=== PATIENT | male | born 1945 | race Caucasian/White ===

== ENCOUNTER → 2018-03-25 11:48 | Outpatient (CLI) | payer MEDICARE, SELFPAY ==
[2018-03-25 14:35] LABS: Alanine Aminotransferase 26 IU/L (21-72); Albumin 4.3 g/dL (3.5-5.0); Albumin Globulin Ratio 1.9 (1.0-2.8); Alkaline Phosphatase 74 U/L (38-126); Aspartate Aminotransferase 28 IU/L (17-59); BUN Creatinine Ratio 15.8 (6-22); Bilirubin Total 1.4 mg/dL (0.2-1.3); Blood Urea Nitrogen 19 mg/dL (9-20); Calcium 9.1 mg/dL (8.4-10.2); Carbon Dioxide 26 mmol/L (22-32); Chloride 89 mmol/L (98-107); Cholesterol 144 mg/dL (140-199); Estimated Glomerular Filt Rate 59.7 mL/min (>60); Globulin 2.3 g/dL (1.7-4.1); Glucose 86 mg/dL (80-110); HDL Cholesterol 87 mg/dL (40-60); HEMOLYSIS < 15 (0-50); LDL Cholesterol Calculated 49 mg/dL (<100); Potassium 4.7 mmol/L (3.4-5.1); Sodium 127 mmol/L (137-145); Total Protein 6.6 g/dL (6.3-8.2); Triglycerides 42 mg/dL (35-150)
[2018-03-25 15:05] LABS: Prostate Specific Antigen Scrn 3.64 ng/mL (0.1-4.0)
== END ==
PROVIDERS: PCP Internal Medicine; Visit Provider Internal Medicine
DX: D64.9 Anemia, unspecified (principal); I10 Essential (primary) hypertension; Z00.01 Encounter for general adult medical examination with abnormal findings
CPT/HCPCS: 36415; 80053; 80061; G0103

== ENCOUNTER → 2018-12-23 07:48 | Outpatient (CLI) | payer MEDICARE, SELFPAY ==
--- NOTE | 2018-12-23 | DI.ECHO.S_ITS ---
[facility] +---------+ : : [address] : [address] : : : : [id number] : : : : Phone: [phone]+ Echocardiogram Report + + :Name: JEFF GIL Study Date: 12/23/2018 Height: 72 in : :[facility] Exam Location: [facility] Weight: 208 lb : : Gender: Male BSA: 2.2 m2 : :: 1945 Age: 73 yrs BP: 104/60 mmHg: :Reason For Study: AFIB : : Performed By: Hank Garcia : :Referring: JAGDISH AVILA : + + Interpretation Summary The patient was in atrial fibrillation with rapid ventricular response during the exam with a heart rate exceeding 100 bpm. Normal left ventricle size with ejection fraction 50-55%. Moderately dilated left atrium. Severely dilated right atrium. Mild aortic valve sclerosis. Mild mitral regurgitation. Moderate tricuspid regurgitation. The right ventricular systolic pressure is estimated to be at least 28 mmHg based on an estimated right atrial pressure of 8 mm Hg. Mildly enlarged ascending aorta. Procedure: A two-dimensional transthoracic echocardiogram with color flow and Doppler was performed. The study quality was technically adequate. There is no prior echocardiogram noted for this patient. The patient was in atrial fibrillation with rapid ventricular response during the exam with a heart rate exceeding 100 bpm. The patient had a heart rate of 91-125 beats per minute. Left Ventricle: The left ventricle is normal in size. There is normal left ventricular wall thickness. The ejection fraction is estimated to be 50-55%. There are no focal wall motion abnormalities. Diastolic function could not be accurately assessed due to atrial fibrillation. Right Ventricle: The right ventricle is at the upper limits of normal in size. The right ventricular systolic function is normal. Atria: The left atrium is moderately dilated. The right atrium is severely dilated. The interatrial septum is intact with no evidence for an atrial septal defect. Mitral Valve: The mitral valve is normal in structure and function. There is mild mitral regurgitation. Aortic Valve: There is mild aortic valve sclerosis. The aortic valve opens well. No aortic regurgitation is present. Tricuspid Valve: The tricuspid valve is normal in structure and function. There is moderate tricuspid regurgitation. The right ventricular systolic pressure is estimated to be at least 28 mmHg based on an estimated right atrial pressure of 8 mm Hg. Pulmonic Valve: The pulmonic valve is normal in structure and function. There is trace pulmonic regurgitation. Great Vessels: The aortic root is normal size. The ascending aorta is mildly enlarged. The pulmonary artery is normal size. The IVC is dilated (diameter is greater than 2.1 cm) yet it collapses greater than 50% with a sniff. This suggests a right atrial pressure of 8 mm Hg. Pericardium/ Pleura There is no pericardial effusion. There is no pleural effusion. MMode/2D Measurements & Calculations LVIDd: 4.8 cm LVOT diam: 2.2 cm LVIDs: 3.6 cm Ao root diam: 3.7 cm FS: 25.0 % Aortic Jxn: 2.9 cm EPSS: 0.82 cm asc Aorta Diam: 3.8 cm IVSd: 1.2 cm Ao Arch Diam (Prox Trans): 2.9 cm LVPWd: 0.92 cm LV brown. diameter/BSA (cm/m^2): 2.2 LV sys. diameter/BSA (cm/m^2): 1.7 LA dimension: 5.1 cm RA long axis: 5.9 cm LA A2 area: 27.1 cm2 RA area: 28.1 cm2 LA A4 area: 27.9 cm2 RA vol: 113.6 ml LA length (vol): 6.6 cm RA : 52.4 ml/m2 LA vol: 97.4 ml IVC diam: 2.6 cm LA vol index: 45.0 ml/m2 RVD1 (basal): 4.4 cm RVD2 (mid): 3.1 cm Doppler Measurements & Calculations Ao V2 max: 92.9 cm/sec LVOT Max Leonidas: 83.2 cm/sec Ao V2 mean: 75.7 cm/sec LV V1 max P.8 mmHg Ao max P.5 mmHg LV V1 VTI: 16.1 cm Ao mean P.4 mmHg DIEGO(I,D): 4.0 cm2 Ao V2 VTI: 15.8 cm DIEGO(V,D): 3.5 cm2 sev ratio: 1.0 DIEGO indexed to BSA (cm^2/m^2): 1.8 MV E max leonidas: 94.2 cm/sec TR max leonidas: 224.1 cm/sec MV A max leonidas: 1.3 cm/sec TR max P.1 mmHg MV E/A: 72.6 PA V2 max: 66.8 cm/sec Med Peak E' Leonidas: 7.2 cm/sec PA V2 mean: 53.9 cm/sec E/E' med: 13.2 PA mean P.2 mmHg Lat Peak E' Leonidas: 11.5 cm/sec PA pr(Accel): 46.6 mmHg E/E' lat: 8.2 PA Accel Time: 0.07 sec E/e' average: 10.7 MV dec time: 0.12 sec SV(OT): 62.5 ml Electronically signed by: Arun Mohr on Reading Physician:12/23/2018 02:29 PM
== END ==
PROVIDERS: PCP Internal Medicine; Visit Provider Internal Medicine
DX: I48.91 Unspecified atrial fibrillation (principal); I35.8 Other nonrheumatic aortic valve disorders; I34.0 Nonrheumatic mitral (valve) insufficiency; I51.7 Cardiomegaly; Q25.40 Congenital malformation of aorta unspecified
CPT/HCPCS: 93306

== ENCOUNTER → 2019-01-10 07:42 | Outpatient (CLI) | payer MEDICARE, SELFPAY ==
--- NOTE | 2019-01-10 08:50 | PM.TREADMILL ---
Cardiac Stress Test Report Referral & Results Date Patient Seen: 01/10/19 Time Patient Seen: 08:30 Requesting provider: Dany Duran Indication: Atrial Fibrillation Rest ECG: A-fib Procedure Note: Today following both written and verbal informed consent the patient was exercised according to a standard Scar protocol patient went for a total of 5 minutes 52 seconds achieving a maximum heart rate of 188 maximum systolic blood pressure of 160. This is approximately 7 METS. Exercise was terminated at this point because of fatigue. Patient was also given Cardiolite through a previously started Hep-Lock IV by the nuclear process engineer approximately 1 minute prior to the cessation of exercise. No signs or symptoms of angina. Atrial fibrillation throughout the test. Diffuse [address] elevations, which resolved rapidly with rest. Occasional PVCs. PHYLICIA +10% on sedentary scale. Impression: Intermediate probability for ischemia. Parker treadmill score of -4. Will await perfusion imaging. Please note: Actual ECG tracings can be found in the PACS system.
--- NOTE | 2019-01-10 08:53 | P.PCN_ITS ---
Cardiac Stress Test Report Referral & Results Date Patient Seen: 01/10/19 Time Patient Seen: 08:30 Requesting provider: Dany Duran Indication: Atrial Fibrillation Rest ECG: A-fib Procedure Note: Today following both written and verbal informed consent the patient was exercised according to a standard Scar protocol patient went for a total of 5 minutes 52 seconds achieving a maximum heart rate of 188 maximum systolic blood pressure of 160. This is approximately 7 METS. Exercise was terminated at this point because of fatigue. Patient was also given Cardiolite through a previously started Hep-Lock IV by the medical doctor nuclear medicine approximately 1 minute prior to the cessation of exercise. No signs or symptoms of angina. Atrial fibrillation throughout the test. Diffuse [address] elevations, which resolved rapidly with rest. Occasional PVCs. PHYLICIA +10% on sedentary scale. Impression: Intermediate probability for ischemia. Parker treadmill score of -4. Will await perfusion imaging. Please note: Actual ECG tracings can be found in the PACS system.
--- NOTE | 2019-01-13 17:13 | DI.NM.S_ITS ---
DATE OF SERVICE: 01/10/2019 PROCEDURE: Exercise perfusion study. INDICATIONS: Atrial fibrillation. RADIOPHARMACEUTICAL: 25.3 mCi technetium-99m Myoview IV was injected at stress and 25.9 mCi technetium-99m Myoview IV was injected at rest. CARDIAC STRESS: Patient underwent exercise perfusion study under the supervision of an attending staff. He walked on Scar protocol for 5 minutes 52 seconds, achieved 7 METs of workload and functional aerobic impairment of 10%. Patient achieved 127% of target heart rate. Baseline blood pressure 124/82. Peak blood pressure 160/90. Baseline rhythm was sinus with a fib with up to 0.[address] depression in inferolateral leads. During stress, there was more pronounced ST depression in inferolateral leads as well as right bundle-branch block pattern. ST segment settle down to the baseline in 1 minute of the recovery. Patient felt fatigue. There was occasional PVCs. RAW DATA: There was increased of diaphragmatic activity. Patient's weight is 208 pounds. GATED STUDY: Stress LV ejection fraction 53%. No transient ischemic dilatation. Resting end-diastolic volume is 87 mL. TID ratio is 0.89, which is within normal limits. No regional wall motion abnormalities. Lung/heart ratio is 0.38, which is within normal limits. MYOCARDIAL PERFUSION SCAN: Stress supine and resting supine and stress prone images were compared to each other. Resting supine images revealed small-sized mildly decreased perfusion of inferolateral wall. Stress supine images revealed mildly decreased perfusion of distal anterior septum. During stress prone images, all those defects were normalized. There was no obvious ischemia infarction pattern. CONCLUSION: I will call this study a normal myocardial perfusion study with evidence of tissue attenuation artifact as stated above which got improved and resolved during prone images. The patient has baseline atrial fibrillation. There was enhanced chronotropic response with exercise. Rate-related right bundle-branch block seen as well. Stress left ventricular (LV) ejection fraction 53% and resting LV ejection fraction 60%. As far as perfusion scan is concerned, this is a low-risk myocardial perfusion scan. Homar Vargas - ANIMAL STUNNER/lisa/ab doc#: [id number]/job#: [id number] dd: 01/13/2019 16:40:00 dt: 01/13/2019 17:02:00 DICTATING MD/COPIES TO: Praveen Amaya MD COPIES MNE: TED
== END ==
PROVIDERS: PCP Internal Medicine; Referring Provider Student in an Organized Health Care Education/Training Program; Visit Provider Internal Medicine
DX: I48.91 Unspecified atrial fibrillation (principal)
CPT/HCPCS: 78452; 93016; 93017; 93018; A9502

== ENCOUNTER → 2019-01-31 15:13 | Outpatient (CLI) | payer MEDICARE, SELFPAY ==
[2019-01-31 15:41] LABS: Add Manual Diff / Slide Review NO; Basophils Absolute Auto 0 /uL (0-100); Basophils Percent Auto 0.6 % (0-2); Eosinophils Absolute Auto 200 /uL (0-450); Hematocrit 42.3 % (41-53); Hemoglobin 14.4 g/dL (13.5-17.5); Lymphocytes Absolute Auto 1200 /uL (1100-4500); Lymphocytes Percent Auto 21.8 % (25-40); Mean Corpuscular HGB Conc 34.1 % (30-36); Mean Corpuscular Hemoglobin 34.5 PG (26-34); Monocytes Absolute Auto 700 /uL (0-900); Monocytes Percent Auto 12.6 % (3-14); Neutrophils Absolute Auto 3500 /uL (1500-7000); Platelet Count 158 X10^3/uL (150-400); Red Blood Cell Count 4.19 X10^6/uL (4.5-5.9); Red Cell Distribution Width 14.6 % (11.6-14.8); White Blood Cell Count 5.7 X10^3/uL (4.5-11.0)
[2019-01-31 16:10] LABS: BUN Creatinine Ratio 24.6 (6-22); Blood Urea Nitrogen 32 mg/dL (9-20); Calcium 8.9 mg/dL (8.4-10.2); Carbon Dioxide 24 mmol/L (22-32); Chloride 98 mmol/L (98-107); Estimated Glomerular Filt Rate 54.3 mL/min (>60); Glucose 108 mg/dL (80-110); HEMOLYSIS 16 (0-50); Potassium 4.4 mmol/L (3.4-5.1); Sodium 131 mmol/L (137-145)
== END ==
PROVIDERS: PCP Internal Medicine; Visit Provider Internal Medicine Cardiovascular Disease
DX: I48.1 Persistent atrial fibrillation (principal)
CPT/HCPCS: 36415; 80048; 85025

== ENCOUNTER → 2019-04-21 14:37 | Outpatient (CLI) | payer MEDICARE, SELFPAY ==
--- NOTE | 2019-04-21 14:40 | DI.RAD.S_ITS ---
PROCEDURE: XR ANKLE RT MIN 3V INDICATIONS: Trauma, swelling, pain, ecchymosis lateral malleoli. R/o fx TECHNIQUE: 3 views of the ankle were acquired. COMPARISON: None. FINDINGS: Bones: No fractures or dislocations. Ankle mortise is normally aligned. No suspicious bony lesions. Large plantar calcaneal bone spur. Soft tissues: No tibiotalar joint effusion. Achilles tendon appears normal. Soft tissue swelling is noted and ligamentous injury cannot be excluded. IMPRESSION: No fracture. No osseous lesion. If symptoms and/or clinical suspicion for pathology persists, further assessment with repeat radiographs (7-10 days) or advanced imaging (e.g. CT, MRI or bone scan) may be helpful. Dictated by: Samantha Horta MD, PhD on 04/21/2019 at 14:52 Approved by: Samantha Horta MD, PhD on 04/21/2019 at 14:53
== END ==
PROVIDERS: PCP Internal Medicine; Visit Provider Physician Assistant
DX: S99.911A Unspecified injury of right ankle, initial encounter (principal); X58.XXXA Exposure to other specified factors, initial encounter; M25.471 Effusion, right ankle; M77.31 Calcaneal spur, right foot
CPT/HCPCS: 73610

== ENCOUNTER → 2019-05-05 07:59 | Outpatient (CLI) | payer MEDICARE, SELFPAY ==
[2019-05-05 09:09] LABS: Add Manual Diff / Slide Review NO; Basophils Absolute Auto 0 /uL (0-100); Basophils Percent Auto 0.8 % (0-2); Eosinophils Absolute Auto 100 /uL (0-450); Eosinophils Percent Auto 2.5 % (2-4); Hemoglobin 15.4 g/dL (13.5-17.5); Lymphocytes Absolute Auto 1200 /uL (1100-4500); Lymphocytes Percent Auto 22.2 % (25-40); Mean Corpuscular HGB Conc 34.2 % (30-36); Mean Corpuscular Hemoglobin 34.8 PG (26-34); Mean Corpuscular Volume 101.5 fL (80-100); Monocytes Absolute Auto 800 /uL (0-900); Monocytes Percent Auto 14.2 % (3-14); Neutrophils Absolute Auto 3200 /uL (1500-7000); Neutrophils Percent Auto 60.3 % (50-75); Platelet Count 180 X10^3/uL (150-400); Red Blood Cell Count 4.43 X10^6/uL (4.5-5.9); Red Cell Distribution Width 13.9 % (11.6-14.8); White Blood Cell Count 5.3 X10^3/uL (4.5-11.0)
[2019-05-05 09:38] LABS: BUN Creatinine Ratio 22.5 (6-22); Blood Urea Nitrogen 27 mg/dL (9-20); Calcium 9.3 mg/dL (8.4-10.2); Carbon Dioxide 29 mmol/L (22-32); Chloride 97 mmol/L (98-107); Estimated Glomerular Filt Rate 59.3 mL/min (>60); Glucose 95 mg/dL (80-110); HEMOLYSIS 24 (0-50); Potassium 4.5 mmol/L (3.4-5.1); Sodium 133 mmol/L (137-145)
== END ==
PROVIDERS: Family Provider Internal Medicine; PCP Internal Medicine; Visit Provider Internal Medicine Cardiovascular Disease
DX: I10 Essential (primary) hypertension (principal)
CPT/HCPCS: 36415; 80048; 85025

== ENCOUNTER 2019-07-30 17:09 | Emergency (ER) | payer MEDICARE, SELFPAY ==
--- NOTE | 2019-07-30 17:11 | DI.CT.S_ITS ---
PROCEDURE: CT HEAD/BRAIN WO CON INDICATIONS: modified trauma,glf on eliquis TECHNIQUE: Noncontrast 4.5 mm thick angled axial sections acquired from the foramen magnum to the vertex, with coronal and sagittal reformats. For radiation dose reduction, the following was used: automated exposure control, adjustment of mA and/or kV according to patient size. COMPARISON: None. FINDINGS: Image quality: Excellent. CSF spaces: Basal cisterns are patent. No extra-axial fluid collections. The ventricles are symmetric in size and shape. Brain: No intracranial bleeds or masses. There is cerebral volume loss for age, with resultant ventricular and sulcal prominence. There are periventricular and deep white matter chronic small vessel ischemic changes. There is intracranial internal carotid artery atherosclerosis. Skull and face: Calvarium and visualized facial bones appear intact, without suspicious lesions. Punctate radiopacities are visualized within a laceration overlying the right frontal bone. Sinuses: There is diffuse mucosal thickening of the ethmoids air cells and maxillary sinuses. Mucoperiosteal reaction is present bilaterally within the maxillary sinuses. The mastoid air cells and the other paranasal sinuses are clear. IMPRESSION: 1. No acute intracranial findings. 2. Findings likely associated with chronic microvascular ischemic changes. 3. Chronic sinusitis. 4. Probable small soft tissue foreign bodies within a laceration overlying the right frontal bone. Dictated by: Tasha Cohen M.D. on 07/30/2019 at 17:46 Approved by: Tasha Cohen M.D. on 07/30/2019 at 17:49
[2019-07-30 17:13] VITALS: BP 142/101; PULSE 112; RESP 15; TEMP 36.7; O2SAT 99; BMI 27.1
--- NOTE | 2019-07-30 17:40 | DI.RAD.S_ITS ---
PROCEDURE: XR CHEST 1V INDICATIONS: FALL TECHNIQUE: One view of the chest was acquired. COMPARISON: None. FINDINGS: Surgical changes and devices: None. Lungs and pleura: Lungs are clear. No pleural effusions or pneumothorax. Mediastinum: Mediastinal contours appear normal. Heart size is normal. Bones and chest wall: No suspicious bony lesions. Overlying soft tissues appear unremarkable. IMPRESSION: No acute cardiopulmonary findings. Dictated by: Tasha Cohen M.D. on 07/30/2019 at 18:15 Approved by: Tasha Cohen M.D. on 07/30/2019 at 18:15
--- NOTE | 2019-07-30 18:08 | ED_ITS ---
HPI - Trauma General Chief Complaint: Trauma Stated Complaint: GLF,syncopal episode,takes eliquis Time Seen by Provider: 07/30/19 18:08 Source: patient Mode of arrival: Ambulatory Limitations: no limitations History of Present Illness HPI narrative: 74-year-old gentleman with a history of atrial fibrillation anticoagulated on apixaban was walking from his car to his house this afternoon when he became quite dizzy fell forward landing on his nose. It is not entirely clear that he was able to catch himself her protect the fall in any way. He is complaining of a bit of neck tenderness as well. He states he did not pass out he does remember the entire episode and he was able to get up afterwards. Was able to walk into his house clean himself up and then get to the emergency department. There is a moderate amount of abrasions/lacerations over his forehead and the right sikhism secondary to his glasses. Related Data Home Medications Medication Instructions Recorded Confirmed apixaban PO 04/21/19 04/21/19 furosemide PO 04/21/19 04/21/19 glucosamine sulfate PO 04/21/19 04/21/19 metoprolol succinate PO 04/21/19 04/21/19 potassium chloride PO 04/21/19 04/21/19 tamsulosin PO 04/21/19 04/21/19 Previous Rx's Medication Instructions Recorded mupirocin 2 % topical ointment 1 applic TOP TID #30 gram 04/21/19 Allergies Allergy/AdvReac Type Severity Reaction Status Date / Time No Known Drug Allergies Allergy Verified 04/21/19 13:43 Review of Systems Review of Systems Narrative: Return from a trip to [facility] approximately a week ago. While there had had a mild upper respiratory infection with mild cough continues to have slight nonproductive cough. Has not noticed palpitations, increased lower extremity edema he does note that he has been a bit more tired recently. He has a wound on the right posterior lower calf from a piece of wood falling on that area that is currently being followed by wound care at [facility] that was seen evaluated and redressed today and is healing nicely. No fevers, chills, rashes. No chest pain no dyspnea in remainder of review is otherwise unremarkable Patient History Medical History (Updated 07/30/19 @ 21:25 by Cara Rodgers MD) Anticoagulation adequate (Acute) Atrial fibrillation (Acute) Hypertension (Acute) Social History Smoking Status: Unknown if ever smoked Smoking Status: Unknown if ever smoked alcohol intake frequency: a few times a week Substance Use Type: does not use Exam Narrative Exam Narrative: General: Healthy appearing, in no acute distress. Significant abrasions and lacerations over the forehead and right sikhism secondary to his glasses. Able to give a complete and coherent history. Well-nourished well- developed HEENT: Moist mucous membranes, normal sclera with reactive pupils, Neck: No JVD, supple, he complains of increasing tenderness on the left side mostly in the trapezius area. No specific bony point tenderness however some tenderness the left occipital insert and with mechanism of fall concern for fracture remains high Respiratory: Lungs are clear to auscultation, no wheezing no rales no rhonchi. Full and symmetrical air movement Cardiac: Regular rate and rhythm no murmurs no bruits Abdomen: Soft nontender good bowel tones, no flank pain Skin: Warm and dry, no rashes Neurologic: Grossly neurologically intact with no obvious asymmetries or abnorm alities Extremities: well perfused, minor abrasion on the right shoulder and small skin tear on the right elbow. His right ankle has a clean and dry with a surgical dressing and pressure sock on it that is not removed. He has 2+ lower extremity edema on the left side with chronic venous stasis changes. Psych: Cooperative, appropriate insight and affect Initial Vital Signs Initial Vital Signs: Vital Signs Temperature 98.0 F 07/30/19 17:13 Pulse Rate 112 H 07/30/19 17:13 Respiratory Rate 15 07/30/19 17:13 Blood Pressure 142/101 H 07/30/19 17:13 Pulse Oximetry 99 07/30/19 17:13 Procedures Laceration Repair Laceration 1: Site: face (5.5 cm laceration over the central part of his forehead with 2 stellate area is top and bottom and the linear component connecting the two. ) Size (cm): 5.5 Depth: simple, single layer Local Anesthetic: lidocaine 1% and with bicarb Amount of anesthesia used (mL): 5 Pre-repair: wound explored, irrigated extensively and deep structures intact Skin layer closed with: nylon Size (cm): 4-0 Technique: other (Due to the complex nature of the wound multiple suture techniques were used to make sure that the stellate lesions were reapproximated for the best aesthetic result. There were horizontal mattress as well as single interrupted sutures) Technique: simple, interrupted and horizontal mattress Laceration 2: Site: face Side (If applicable): left Size (cm): 4.5 Description: linear, stellate, flap, irregular and contaminated Depth: simple, single layer Local Anesthetic: lidocaine 1% and with bicarb Amount of anesthesia used (mL): 5 Skin layer closed with: nylon Size (cm): 4-0 Technique: simple, interrupted, horizontal mattress and other (Due to the complex nature of the wound a combination of horizontal mattress to pull together the stellate portions as well as sent simple interrupted as well as Steri-Strips to hold some of the abraded areas of epidermis in place) Subcutaneous layer closed with: vicryl Size: 4-0 Course Orders Ordered: ED Orders 07/30/19 17:10 EKG-12 Lead Stat 07/30/19 17:11 CT head/brain wo con Stat 07/30/19 17:40 XR chest 1V Stat 07/30/19 17:48 Complete Blood Count AUTO DIFF Stat Comprehensive Metabolic Panel Stat Troponin & CK Cardiac Panel Stat 07/30/19 18:19 CT cervical spine wo con Stat 07/30/19 20:13 Troponin I Stat Discontinued Medications Bacitracin (Bacitracin) 1 applic TOP NOW ONE Stop: 07/30/19 19:19 Last Admin: 07/30/19 19:40 Dose: 1 applic Documented by: TOMA Sodium Chloride (Normal Saline 0.9%) 1,000 mls @ 150 mls/hr IV CONT LEAH Last Infusion: 07/30/19 20:12 Dose: 0 mls/hr Documented by: Admin: 07/30/19 18:19 Dose: 150 mls/hr Documented by: TOMA Lidocaine/Sodium Bicarbonate (Buffered Lidocaine 10 Ml Syr) 20 ml INJ NOW ONE Stop: 07/30/19 19:56 Last Admin: 07/30/19 21:27 Dose: 20 ml Documented by: TOMA Oxycodone/Acetaminophen (Percocet 5/325) 1 tab PO NOW ONE Stop: 07/30/19 21:20 Last Admin: 07/30/19 21:27 Dose: 1 tab Documented by: TOMA Oxycodone/Acetaminophen (Endocet 5/325 Prepack) 1 bottle MISC SEEINSTR ONE Stop: 07/30/19 21:20 Last Admin: 07/30/19 21:27 Dose: 1 bottle Documented by: TOMA Vital Signs Vital signs: Vital Signs - 8 hr 07/30/19 17:13 07/30/19 18:39 07/30/19 21:50 Temperature 98.0 F 98.1 F Pulse Rate 112 H 122 H 120 H Respiratory Rate 15 18 18 Blood Pressure 142/101 H 141/101 H Blood Pressure [Right Arm] 142/101 H Pulse Oximetry 99 96 98 MDM - Trauma Medical Records Attestation: I reviewed the patient's medical records. Lab Data Attestation: I reviewed the patient's lab results. Lab results narrative: Creatinine of 1.2 is stable Result diagrams: 07/30/19 17:48 07/30/19 17:48 Labs: Lab Results 07/30/19 07/30/19 07/30/19 Range/Units 17:48 17:48 20:13 WBC 8.7 (4.5-11.0) X10^3/uL RBC 4.00 L (4.5-5.9) X10^6/uL Hgb 13.6 (13.5-17.5) g/dL Hct 39.4 L (41-53) % MCV 98.5 (80-100) fL MCH 34.0 (26-34) PG MCHC 34.5 (30-36) % RDW 13.3 (11.6-14.8) % Plt Count 204 (150-400) X10^3/uL Neut % (Auto) 76.4 H (50-75) % Lymph % (Auto) 10.7 L (25-40) % [place] % (Auto) 11.9 (3-14) % Eos % (Auto) 0.5 L (2-4) % Baso % (Auto) 0.5 (0-2) % Neut # (Auto) 6700 (7475-8515) /uL Lymph # (Auto) 900 L (2732-7774) /uL [place] # (Auto) 1000 H (0-900) /uL Eos # (Auto) 0 (0-450) /uL Baso # (Auto) 0 (0-100) /uL Sodium 131 L (137-145) mmol/L Potassium 4.2 (3.4-5.1) mmol/L Chloride 99 (98-107) mmol/L Carbon Dioxide 23 (22-32) mmol/L BUN 29 H (9-20) mg/dL Creatinine 1.20 (0.66-1.25) mg/dL Estimated GFR 59.3 L (>60) mL/min BUN/Creatinine Ratio 24.2 H (6-22) Glucose 137 H (80-110) mg/dL Calcium 8.5 (8.4-10.2) mg/dL Total Bilirubin 0.8 (0.2-1.3) mg/dL AST 32 (17-59) IU/L ALT 21 (<50) IU/L Alkaline Phosphatase 79 (38-126) U/L Total Creatine Kinase 41 L (55-170) U/L CK-MB (CK-2) TNP CK-MB (CK-2) Rel Index TNP Troponin I < 0.012 < 0.012 (0.01-0.034) ng/mL Total Protein 6.6 (6.3-8.2) g/dL Albumin 3.7 (3.5-5.0) g/dL Globulin 2.9 (1.7-4.1) g/dL Albumin/Globulin Ratio 1.3 (1.0-2.8) Imaging Data CT scan - head: My Impression: IMPRESSION: No acute cardiopulmonary findings. Dictated by: Tasha Cohen M.D. on 07/30/2019 at 18:15 Radiologist's Impression: IMPRESSION: 1. No acute intracranial findings. 2. Findings likely associated with chronic microvascular ischemic changes. 3. Chronic sinusitis. 4. Probable small soft tissue foreign bodies within a laceration overlying the right frontal bone. Dictated by: Tasha Cohen M.D. on 07/30/2019 at 17:46 CT - cervical spine: Radiologist's Impression: IMPRESSION: Degenerative change. No acute cervical spine injury. Dictated by: Tasha Cohen M.D. on 07/30/2019 at 19:03 ECG Data Attestation: I personally reviewed and interpreted this ECG as follows: Interpretation: Atrial fibrillation at a rate of 109. Some lateral ST depression without prior EKGs for comparison. He does have a right bundle branch block as well. MDM Narrative Medical decision making narrative: Initial CT scan head and cervical spine are unremarkable. Given the mild lateral ST depression noted in the unexplained dizziness/syncopal episode would like to repeat a 2nd troponin prior to discharge home. No evidence of acute coronary syndrome or stroke like syndrome to explain the d izziness that caused the fall. Multiple stellate connected areas of laceration that required quite a bit of cleaning to get all the debris from the base. Good cosmetic result. Small skin tear to the right elbow dressed with Tegaderm only Patient was up and walking pain was well controlled safe for home discharge without any evidence of additional trauma or life-threatening medical issue Discharge Plan Departure Patient Disposition: Home Clinical Impression: Laceration Fall Qualifiers: Encounter type: initial encounter Qualified Code(s): W19.XXXA - Unspecified fall, initial encounter Atrial fibrillation Qualifiers: Atrial fibrillation type: unspecified chronic Qualified Code(s): I48.20 - Chronic atrial fibrillation, unspecified Discharge Date/Time: 07/30/19 22:12 Instructions: DI for Trauma Activity Restrictions/Additional Instructions: Thank you for coming in today. I am sorry you ended up falling. The sutures over your forehead and cheek should heal nicely. There were a number of star like lesions and unfortunately, these tend to leave scars. Please leave the Steri-Strips on for at least for 5 days. The sutures will need to come out on or about August 07. If you notice signs of infection like redness, increased pain or drainage you do need to have this re-evaluated. Do expect to have increased pain in other places tomorrow due to her fall. Use want to oxycodone as needed for pain. Use Tylenol for minor pain. The oxycodone will make you constipated and you should not drive, do complicated tasks or optic operate machinery while on it. Consider using a stool softener, extra water and dried fruit to prevent the constipation. We did do a thorough workup today to see if there was any other reason for the dizzy spell that led to the fall. I found no evidence of infection, bleeding inside her brain, neck fractures or other broken bones, stroke-like symptoms, heart attack like symptoms or heart attack signs or other life-threatening events. You that very diego today, please be careful and try and avoid falls at all cost. I wish you the very best Prescriptions: No Action apixaban PO RF: 0 metoprolol succinate PO RF: 0 furosemide PO RF: 0 potassium chloride PO RF: 0 tamsulosin PO RF: 0 glucosamine sulfate PO RF: 0 mupirocin 2 % ointment 1 applic TOP TID Qty: 30 RF: 0 Referrals: Dany Duran MD [Primary Care Provider] -
[2019-07-30 18:14] LABS: Add Manual Diff / Slide Review NO; Alanine Aminotransferase 21 IU/L (<50); Albumin 3.7 g/dL (3.5-5.0); Albumin Globulin Ratio 1.3 (1.0-2.8); Alkaline Phosphatase 79 U/L (38-126); Aspartate Aminotransferase 32 IU/L (17-59); BUN Creatinine Ratio 24.2 (6-22); Basophils Absolute Auto 0 /uL (0-100); Basophils Percent Auto 0.5 % (0-2); Bilirubin Total 0.8 mg/dL (0.2-1.3); Blood Urea Nitrogen 29 mg/dL (9-20); Calcium 8.5 mg/dL (8.4-10.2); Carbon Dioxide 23 mmol/L (22-32); Chloride 99 mmol/L (98-107); Creatine Kinase 41 U/L (55-170); Eosinophils Absolute Auto 0 /uL (0-450); Eosinophils Percent Auto 0.5 % (2-4); Estimated Glomerular Filt Rate 59.3 mL/min (>60); Globulin 2.9 g/dL (1.7-4.1); Glucose 137 mg/dL (80-110); HEMOLYSIS 26 (0-50); Hematocrit 39.4 % (41-53); Hemoglobin 13.6 g/dL (13.5-17.5); Lymphocytes Absolute Auto 900 /uL (1100-4500); Lymphocytes Percent Auto 10.7 % (25-40); Mean Corpuscular HGB Conc 34.5 % (30-36); Mean Corpuscular Volume 98.5 fL (80-100); Monocytes Absolute Auto 1000 /uL (0-900); Monocytes Percent Auto 11.9 % (3-14); Neutrophils Absolute Auto 6700 /uL (1500-7000); Neutrophils Percent Auto 76.4 % (50-75); Platelet Count 204 X10^3/uL (150-400); Potassium 4.2 mmol/L (3.4-5.1); Red Cell Distribution Width 13.3 % (11.6-14.8); Sodium 131 mmol/L (137-145); Total Protein 6.6 g/dL (6.3-8.2); White Blood Cell Count 8.7 X10^3/uL (4.5-11.0)
[2019-07-30] MEDS: SODIUM CHLORIDE 0.9% 1,000 ML 150 ML IV (18:19)
--- NOTE | 2019-07-30 18:19 | DI.CT.S_ITS ---
PROCEDURE: CT CERVICAL SPINE WO CON INDICATIONS: neck pain, fell forward on face TECHNIQUE: Noncontrast 3 mm thick sections acquired from the skull base to the T4 level. Sagittal and coronal reformats were then constructed. For radiation dose reduction, the following was used: automated exposure control, adjustment of mA and/or kV according to patient size. COMPARISON: None. FINDINGS: Image quality: Excellent. Bones: No fractures or dislocations. Anterior syndesmophytes are present within the lower cervical spine. Visualized superior ribs are intact. Soft tissues: Prevertebral soft tissues are normal in thickness. No paravertebral hematomas. No apical pneumothoraces. IMPRESSION: Degenerative change. No acute cervical spine injury. Dictated by: Tasha Cohen M.D. on 07/30/2019 at 19:03 Approved by: Tasha Cohen M.D. on 07/30/2019 at 19:07
[2019-07-30 18:26] LABS: Troponin I < 0.012 ng/mL (0.01-0.034)
[2019-07-30 18:39] VITALS: BP 142/101; PULSE 122; RESP 18; O2SAT 96
[2019-07-30] MEDS: BACITRACIN OINT 0.9 GM PCKT 1 APPLIC TOP (19:40)
[2019-07-30 20:40] LABS: Troponin I < 0.012 ng/mL (0.01-0.034)
[2019-07-30] MEDS: OXYCODONE/ACETAMINOPHEN 5/325 TABLET 1 TAB PO (21:27)
[2019-07-30] MEDS: OXYCODONE/APAP 5/325 PREPACK 1 BOTTLE MISC (21:27)
[2019-07-30] MEDS: LIDO 1%/SOD BICARB 8.4% (10ML) 10 ML SYRINGE 20 ML INJ (21:27)
[2019-07-30 21:50] VITALS: BP 141/101; PULSE 120; RESP 18; TEMP 36.7; O2SAT 98
== END 2019-07-30 22:12 | disposition home or self-care (01) ==
PROVIDERS: Emergency Medicine; Emergency Provider Emergency Medicine; Family Provider Internal Medicine; PCP Internal Medicine
DX: S01.81XA Laceration without foreign body of other part of head, initial encounter (principal); I48.20 Chronic atrial fibrillation, unspecified; Z79.01 Long term (current) use of anticoagulants; W19.XXXA Unspecified fall, initial encounter
CPT/HCPCS: 12015; 36415; 70450; 71045; 72125; 80053; 82550; 84484; 85025; 93005; 96360; 96361; 99285

== ENCOUNTER → 2019-11-05 10:42 | Outpatient (CLI) | payer MEDICARE, SELFPAY ==
[2019-11-05 12:55] LABS: Add Manual Diff / Slide Review NO; Basophils Absolute Auto 0 /uL (0-100); Basophils Percent Auto 0.6 % (0-2); Eosinophils Absolute Auto 100 /uL (0-450); Eosinophils Percent Auto 2.5 % (2-4); Hematocrit 42.4 % (41-53); Hemoglobin 14.7 g/dL (13.5-17.5); Lymphocytes Absolute Auto 1100 /uL (1100-4500); Lymphocytes Percent Auto 20.9 % (25-40); Mean Corpuscular HGB Conc 34.7 % (30-36); Mean Corpuscular Hemoglobin 34.7 PG (26-34); Mean Corpuscular Volume 99.9 fL (80-100); Monocytes Absolute Auto 800 /uL (0-900); Neutrophils Absolute Auto 3300 /uL (1500-7000); Platelet Count 130 X10^3/uL (150-400); Red Blood Cell Count 4.25 X10^6/uL (4.5-5.9); Red Cell Distribution Width 13.9 % (11.6-14.8); White Blood Cell Count 5.4 X10^3/uL (4.5-11.0)
[2019-11-05 13:34] LABS: Alanine Aminotransferase 22 IU/L (<50); Albumin 3.9 g/dL (3.5-5.0); Albumin Globulin Ratio 1.5 (1.0-2.8); Alkaline Phosphatase 79 U/L (38-126); Aspartate Aminotransferase 36 IU/L (17-59); Bilirubin Total 1.1 mg/dL (0.2-1.3); Blood Urea Nitrogen 20 mg/dL (9-20); Calcium 9.1 mg/dL (8.4-10.2); Carbon Dioxide 25 mmol/L (22-32); Chloride 98 mmol/L (98-107); Estimated Glomerular Filt Rate > 60.0 mL/min (>60); Globulin 2.6 g/dL (1.7-4.1); Glucose 81 mg/dL (80-110); HEMOLYSIS < 15 (0-50); Potassium 4.8 mmol/L (3.4-5.1); Sodium 131 mmol/L (137-145); Total Protein 6.5 g/dL (6.3-8.2)
[2019-11-05 14:00] LABS: Prostate Specific Antigen 2.19 ng/mL (0.10-4.00)
== END ==
PROVIDERS: Family Provider Internal Medicine; PCP Internal Medicine; Referring Provider Urology; Visit Provider Internal Medicine Cardiovascular Disease
DX: Z12.5 Encounter for screening for malignant neoplasm of prostate (principal); I10 Essential (primary) hypertension; Z79.01 Long term (current) use of anticoagulants
CPT/HCPCS: 36415; 80053; 84153; 85025

== ENCOUNTER → 2020-11-26 08:26 | Outpatient (CLI) | payer MEDICARE, SELFPAY ==
[2020-11-26 10:22] LABS: Alanine Aminotransferase 29 IU/L (<50); Albumin 3.6 g/dL (3.5-5.0); Albumin Globulin Ratio 1.6 (1.0-2.8); Alkaline Phosphatase 82 U/L (38-126); Aspartate Aminotransferase 39 IU/L (17-59); BUN Creatinine Ratio 22.2 (6-22); Bilirubin Total 1.1 mg/dL (0.2-1.3); Blood Urea Nitrogen 24 mg/dL (9-20); Calcium 8.8 mg/dL (8.4-10.2); Carbon Dioxide 26 mmol/L (22-32); Chloride 100 mmol/L (98-107); Cholesterol 150 mg/dL (140-199); Estimated Glomerular Filt Rate > 60.0 mL/min (>60); Globulin 2.3 g/dL (1.7-4.1); Glucose 86 mg/dL (80-110); HDL Cholesterol 63 mg/dL (40-60); HEMOLYSIS < 15 (0-50); LDL Cholesterol Calculated 77 mg/dL (<100); Potassium 5.1 mmol/L (3.4-5.1); Sodium 131 mmol/L (137-145); Total Protein 5.9 g/dL (6.3-8.2); Triglycerides 52 mg/dL (35-150)
== END ==
PROVIDERS: Family Provider Internal Medicine; PCP Internal Medicine; Referring Provider Urology; Visit Provider Urology
DX: R35.1 Nocturia (principal); I10 Essential (primary) hypertension; Z79.01 Long term (current) use of anticoagulants
CPT/HCPCS: 36415; 80053; 80061; 84153

== ENCOUNTER → 2020-11-30 14:04 | Outpatient (CLI) | payer MEDICARE, SELFPAY ==
[2020-11-30 15:11] LABS: Add Manual Diff / Slide Review NO; Basophils Absolute Auto 0 /uL (0-100); Basophils Percent Auto 0.7 % (0-2); Eosinophils Absolute Auto 100 /uL (0-450); Eosinophils Percent Auto 2.2 % (2-4); Hematocrit 42.9 % (41-53); Hemoglobin 14.2 g/dL (13.5-17.5); Lymphocytes Absolute Auto 1200 /uL (1100-4500); Lymphocytes Percent Auto 20.1 % (25-40); Mean Corpuscular HGB Conc 33.1 % (30-36); Mean Corpuscular Hemoglobin 33.7 PG (26-34); Mean Corpuscular Volume 101.9 fL (80-100); Monocytes Absolute Auto 800 /uL (0-900); Monocytes Percent Auto 13.3 % (3-14); Neutrophils Absolute Auto 3800 /uL (1500-7000); Neutrophils Percent Auto 63.7 % (50-75); Platelet Count 141 X10^3/uL (150-400); Red Blood Cell Count 4.21 X10^6/uL (4.5-5.9); Red Cell Distribution Width 13.7 % (11.6-14.8); White Blood Cell Count 5.9 X10^3/uL (4.5-11.0)
== END ==
PROVIDERS: Family Provider Internal Medicine; PCP Internal Medicine; Referring Provider Internal Medicine Cardiovascular Disease; Visit Provider Internal Medicine Cardiovascular Disease
DX: Z79.01 Long term (current) use of anticoagulants (principal)
CPT/HCPCS: 85025

== ENCOUNTER → 2021-09-06 10:16 | Outpatient (CLI) | payer MEDICARE, SELFPAY ==
[2021-09-06 11:04] LABS: COVID19 -Nasal RAPID Negative (Negative)
== END ==
PROVIDERS: Family Provider Internal Medicine; PCP Internal Medicine; Visit Provider Family Medicine Sleep Medicine
DX: Z20.822 Contact with and (suspected) exposure to COVID-19 (principal)
CPT/HCPCS: 87635; C9803

== ENCOUNTER 2021-09-07 09:00 | Day surgery (SDC) | payer MEDICARE, SELFPAY ==
[2021-09-07] VITALS (8 sets, daily range): BP systolic 90–115; BP diastolic 46–75; PULSE 77–106; RESP 14–18; TEMP 36.1–36.6; O2SAT 97–99; BMI 27.8
--- NOTE | 2021-09-07 09:28 | P.HP_ITS ---
History of Present Illness History of Present Illness Date Patient Seen: 09/07/21 Chief complaint: SDC Narrative: Screening colonoscopy Patient History Medical History Anticoagulation adequate Atrial fibrillation Hypertension Family & Social History Tobacco & Substance use: Smoking Status Unknown if ever smoked alcohol intake frequency a few times a week Substance Use Type does not use Meds Home Medications and Allergies Home Medications Medication Instructions Recorded Confirmed Type apixaban [Eliquis] PO 04/21/19 04/21/19 History furosemide PO 04/21/19 04/21/19 History glucosamine sulfate [Glucosamine] PO 04/21/19 04/21/19 History metoprolol succinate PO 04/21/19 04/21/19 History mupirocin 2 % topical ointment 1 applic TOP TID #30 gram 04/21/19 04/21/19 Rx potassium chloride PO 04/21/19 04/21/19 History tamsulosin PO 04/21/19 04/21/19 History Allergies Allergy/AdvReac Type Severity Reaction Status Date / Time No Known Drug Allergies Allergy Verified 04/21/19 13:43 Exam Narrative Exam Narrative: Oropharynx free of lesions Chest clear to auscultation percussion Cardiac exam reveals no S3 or murmur Assessment & Plan Assessment & Plan narrative: Need for screening colonoscopy. Risks, benefits, alternatives have been explained. He has been off his Eliquis for 2 days. Time Spent With Patient Critical Care time: I spent a total of [] minutes of critical care time on this patient's care tod ay; this time is exclusive of procedural time.
--- NOTE | 2021-09-07 09:30 | PM.OP.COLON ---
Operative Date/Time/Diagnoses Date of procedure: 09/07/21 Procedure & Clinicians Study performed: Colonoscopy Indications: Screening Surgeon: Brian Villagomez Procedure Notes Procedure in detail: After informed consent was obtained the patient was placed in left lateral decubitus position. The video colonoscope was introduced the rectum slowly advanced to the terminal ileum. Preparation was good. On slow withdrawal mucosa was carefully examined. The scope was removed. The patient tolerated the procedure well. Blood loss none Complications none Sedation mac Findings 1. Scattered diverticulosis throughout the entire colon but particularly in the sigmoid and right colon. 2. Otherwise negative colonoscopy to terminal ileum. Nicholas should restart his Eliquis today. At the age of 76 and with negative colonoscopies this is probably his last colonoscopy.
[2021-09-07] MEDS: SODIUM CHLORIDE 0.9% 1,000 ML 84 ML IV (09:48)
== END 2021-09-07 10:59 | disposition home or self-care (01) ==
PROVIDERS: Family Provider Internal Medicine; PCP Internal Medicine; Referring Provider Internal Medicine Gastroenterology; Visit Provider Internal Medicine Gastroenterology
PROC: 0DJD8ZZ Inspection of Lower Intestinal Tract, Via Natural or Artificial Opening Endoscopic (ICD-10-PCS; CPT 45378; principal; 2021-09-07 10:00)
DX: Z12.11 Encounter for screening for malignant neoplasm of colon (principal); K57.30 Diverticulosis of large intestine without perforation or abscess without bleeding
CPT/HCPCS: 45378; J2704

== ENCOUNTER → 2021-12-08 14:39 | Outpatient (CLI) | payer MEDICARE, SELFPAY ==
[2021-12-08 15:08] LABS: BUN Creatinine Ratio 26.2 (6-22); Blood Urea Nitrogen 32 mg/dL (9-20); Calcium 8.6 mg/dL (8.4-10.2); Carbon Dioxide 23 mmol/L (22-32); Chloride 101 mmol/L (98-107); Estimated Glomerular Filt Rate > 60 mL/min (>60); Glucose 105 mg/dL (80-110); HEMOLYSIS 17 (0-50); Potassium 4.4 mmol/L (3.4-5.1); Sodium 134 mmol/L (137-145)
== END ==
PROVIDERS: Family Provider Internal Medicine; PCP Internal Medicine; Referring Provider Internal Medicine Cardiovascular Disease; Visit Provider Internal Medicine Cardiovascular Disease
DX: I48.19 Other persistent atrial fibrillation (principal)
CPT/HCPCS: 36415; 80048

== ENCOUNTER → 2022-02-17 10:34 | Outpatient (CLI) | payer MEDICARE, SELFPAY | PROVIDERS: Family Provider Internal Medicine; PCP Internal Medicine; Visit Provider Urology | DX: N40.1 Benign prostatic hyperplasia with lower urinary tract symptoms (principal); R33.9 Retention of urine, unspecified; N30.01 Acute cystitis with hematuria; Z90.79 Acquired absence of other genital organ(s) | CPT/HCPCS: 81002; 87086; 99214 ==

== ENCOUNTER → 2022-03-17 10:39 | Outpatient (CLI) | payer MEDICARE, SELFPAY | PROVIDERS: Family Provider Internal Medicine; PCP Internal Medicine; Visit Provider Urology | DX: N40.1 Benign prostatic hyperplasia with lower urinary tract symptoms (principal); R33.9 Retention of urine, unspecified; N39.0 Urinary tract infection, site not specified; Z90.79 Acquired absence of other genital organ(s) | CPT/HCPCS: 51798; 81002; 87077; 87086; 87186; 99214 ==

== ENCOUNTER → 2022-04-14 13:39 | Outpatient (CLI) | payer MEDICARE, SELFPAY ==
--- NOTE | 2022-04-14 13:40 | DI.CT.S_ITS ---
PROCEDURE: CT IVP A/P W/WO INDICATIONS: Recurring urinary tract infection TECHNIQUE: Optional 5 mm thick noncontrast images acquired from the diaphragm to the symphysis pubis. After the administration of intravenous contrast, 5 mm thick images acquired from the diaphragm to the symphysis pubis after a 10-minute delay. 2 mm thick coronal and sagittal reformats were then performed of the kidneys and ureters. For radiation dose reduction, the following was used: automated exposure control, adjustment of mA and/or kV according to patient size. COMPARISON: None. FINDINGS: Image quality: Excellent. Lung bases: Lung bases are clear. Heart size is normal. Urinary system: Both kidneys are somewhat small in appearance with multiple areas of focal cortical volume loss consistent with remote insults. No stones or hydronephrosis. No perinephric fat stranding. There is normal bilateral renal enhancement. Renal calyces appear normal in morphology when filled with contrast. Opacified portions of both ureters demonstrate normal caliber. Prostate is enlarged. Mild diffuse bladder wall thickening.. No calcified bladder stones. Other solid organs: Liver is normal in size and enhancement. Gallbladder is diffusely contracted, within normal limits . Biliary system is non dilated. Pancreas enhances normally. Spleen is normal in size and enhancement. No adrenal nodules. Peritoneum and bowel: Bowel loops demonstrate normal wall thickness and caliber. No free fluid or air. Nodes and vessels: No retroperitoneal or mesenteric adenopathy by size criteria. Aorta and inferior vena cava are normal in size. Abdominal wall: No ventral hernias. Pelvis: No pathologic free pelvic fluid. Bilateral fat containing inguinal hernias. No inguinal adenopathy. Bones: No suspicious bony lesions. No vertebral body compression fractures. IMPRESSION: 1. Bilateral kidneys appear somewhat small with multiple bilateral areas of focal cortical volume loss is system with remote insults. 2. No renal stones, ureteral stones, hydronephrosis, renal masses, or findings suspicious for malignancy. 3. Diffuse bladder wall thickening. Prostate is enlarged. Dictated by: Jefe Samuels M.D. on 04/14/2022 at 17:02 Approved by: Jefe Samuels M.D. on 04/14/2022 at 17:07
== END ==
PROVIDERS: Family Provider Internal Medicine; PCP Internal Medicine; Referring Provider Urology; Visit Provider Urology
DX: N39.0 Urinary tract infection, site not specified (principal); N40.0 Benign prostatic hyperplasia without lower urinary tract symptoms
CPT/HCPCS: 74178; Q9967

== ENCOUNTER → 2022-04-18 12:17 | Outpatient (CLI) | payer MEDICARE, SELFPAY ==
[2022-04-18 13:52] LABS: BUN Creatinine Ratio 24.3 (6-22); Blood Urea Nitrogen 28 mg/dL (9-20); Calcium 8.7 mg/dL (8.4-10.2); Carbon Dioxide 27 mmol/L (22-32); Chloride 99 mmol/L (98-107); Estimated Glomerular Filt Rate > 60 mL/min (>60); Glucose 86 mg/dL (80-110); HEMOLYSIS < 15 (0-50); Potassium 4.6 mmol/L (3.4-5.1); Sodium 133 mmol/L (137-145)
== END ==
PROVIDERS: Family Provider Internal Medicine; PCP Internal Medicine; Referring Provider Urology; Visit Provider Urology
DX: N39.0 Urinary tract infection, site not specified (principal)
CPT/HCPCS: 36415; 80048

== ENCOUNTER → 2022-11-15 15:42 | Outpatient (CLI) | payer MEDICARE, SELFPAY ==
[2022-11-15 17:55] LABS: BUN Creatinine Ratio 18.7 (6-22); Blood Urea Nitrogen 23 mg/dL (9-20); Calcium 8.2 mg/dL (8.4-10.2); Carbon Dioxide 26 mmol/L (22-32); Chloride 102 mmol/L (98-107); Estimated Glomerular Filt Rate > 60 mL/min (>60); Glucose 72 mg/dL (80-110); HEMOLYSIS 26 (0-50); Potassium 3.8 mmol/L (3.4-5.1); Sodium 135 mmol/L (137-145)
== END ==
PROVIDERS: Family Provider Internal Medicine; PCP Physician Assistant; Referring Provider Urology; Visit Provider Urology
DX: N40.1 Benign prostatic hyperplasia with lower urinary tract symptoms (principal); R94.4 Abnormal results of kidney function studies; R33.9 Retention of urine, unspecified; R97.20 Elevated prostate specific antigen [PSA]; Z90.79 Acquired absence of other genital organ(s)
CPT/HCPCS: 36415; 51798; 80048; 81002; 99214

== ENCOUNTER → 2022-11-27 09:22 | Outpatient (CLI) | payer MEDICARE, SELFPAY ==
--- NOTE | 2022-11-27 09:23 | DI.MRI.S_ITS ---
PROCEDURE: MR PELVIC PROSTATE PROTOCOL INDICATIONS: Elevated PSA TECHNIQUE: Coronal HASTE, axial T1 FSE with fat saturation, 3-plane nonbreath-hold T2 FSE. After the administration of contrast, dynamic axial, delayed axial and coronal VIBE or 2-D FLASH with fat saturation through the pelvis. Optional diffusion weighted imaging and ADC may be performed. COMPARISON: [facility], CT, CT IVP A/P W/WO, 04/14/2022, 13:49. FINDINGS: Image quality: Diffusion weighted and dynamic contrast enhanced images are diagnostic. Prostate: Gland size is 5.6 x 3.7 x 5.3 cm; ellipsoid gland volume is 57 mL. Mild linear and wedge-shaped ADC hypointensities present within the prostate peripheral zone with indistinct T2 correlates (PI-RADS 2 findings). Enlargement of the prostate transitional zone with findings typical of benign prostatic hyperplasia. No large lesion strongly stands out against background parenchymal changes of BPH on T2 weighted images (PI-RADS 2 findings). Genitourinary system: Bladder wall thickness is normal. Distal ureters are non distended. Bowel and peritoneum: No pathologic free pelvic fluid. Inferior colon and small bowel loops are normal in caliber. Nodes and vessels: No pelvic or inguinal adenopathy by size criteria. Iliac vessels are normal in caliber. Bones: Marrow demonstrates normal overall signal, without lesions to suggest metastases. IMPRESSION: 1. No large or highly suspicious focal prostate lesion to direct biopsy. There is enlargement of the prostate transitional zone with findings typical of benign prostatic hyperplasia, with prostate volume estimated at 57 cc. 2. No suspicious lymph nodes identified in the imaged pelvis. Dictated by: Javi Polk M.D. on 11/27/2022 at 15:10 Approved by: Javi Polk M.D. on 11/27/2022 at 15:26
== END ==
PROVIDERS: Family Provider Internal Medicine; PCP Physician Assistant; Referring Provider Urology; Visit Provider Urology
DX: R97.20 Elevated prostate specific antigen [PSA] (principal)
CPT/HCPCS: 72197; A9579

== ENCOUNTER → 2023-03-13 14:27 | Outpatient (CLI) | payer MEDICARE, SELFPAY ==
[2023-03-15 10:04] LABS: PSA Free % 32.1 % (.); PSA, Total 4.7 ng/mL (0.0-4.0)
== END ==
PROVIDERS: Family Provider Internal Medicine; PCP Physician Assistant; Referring Provider Urology; Visit Provider Urology
DX: R97.20 Elevated prostate specific antigen [PSA] (principal)
CPT/HCPCS: 36415; 84153; 84154

== ENCOUNTER → 2023-06-11 14:58 | Outpatient (CLI) | payer MEDICARE, SELFPAY ==
[2023-06-14 11:54] LABS: PSA Free % 32.7 % (.); PSA, Total 2.6 ng/mL (0.0-4.0)
== END ==
PROVIDERS: Family Provider Internal Medicine; PCP Physician Assistant; Referring Provider Urology; Visit Provider Urology
DX: R97.20 Elevated prostate specific antigen [PSA] (principal)
CPT/HCPCS: 36415; 84153; 84154

== ENCOUNTER → 2023-11-05 09:53 | Outpatient (CLI) | payer MEDICARE, SELFPAY ==
[2023-11-05 11:03] LABS: Add Manual Diff / Slide Review NO; Basophils Absolute Auto 0 /uL (0-100); Basophils Percent Auto 0.5 % (0-2); Eosinophils Absolute Auto 100 /uL (0-450); Eosinophils Percent Auto 1.6 % (2-4); Hematocrit 39.8 % (41-53); Hemoglobin 13.3 g/dL (13.5-17.5); Lymphocytes Absolute Auto 1000 /uL (1100-4500); Lymphocytes Percent Auto 20.4 % (25-40); Mean Corpuscular HGB Conc 33.3 % (30-36); Mean Corpuscular Hemoglobin 32.2 PG (26-34); Mean Corpuscular Volume 96.7 fL (80-100); Monocytes Absolute Auto 500 /uL (0-900); Monocytes Percent Auto 9.9 % (3-14); Neutrophils Absolute Auto 3300 /uL (1500-7000); Neutrophils Percent Auto 67.6 % (50-75); Platelet Count 148 X10^3/uL (150-400); Red Blood Cell Count 4.12 X10^6/uL (4.5-5.9); Red Cell Distribution Width 14.2 % (11.6-14.8); White Blood Cell Count 4.8 X10^3/uL (4.5-11.0)
[2023-11-05 11:32] LABS: BUN Creatinine Ratio 25.6 (6-22); Blood Urea Nitrogen 31 mg/dL (9-20); Calcium 8.4 mg/dL (8.4-10.2); Carbon Dioxide 26 mmol/L (22-32); Chloride 107 mmol/L (98-107); Estimated Glomerular Filt Rate > 60 mL/min (>60); Glucose 136 mg/dL (80-110); HEMOLYSIS < 15 (0-50); Potassium 4.3 mmol/L (3.4-5.1); Sodium 137 mmol/L (137-145)
== END ==
PROVIDERS: Family Provider Internal Medicine; PCP Physician Assistant; Referring Provider Nurse Practitioner Family; Visit Provider Nurse Practitioner Family
DX: I48.91 Unspecified atrial fibrillation (principal)
CPT/HCPCS: 36415; 80048; 85025

== ENCOUNTER → 2023-11-26 10:07 | Outpatient (CLI) | payer MEDICARE, SELFPAY ==
[2023-11-26 11:24] LABS: Add Manual Diff / Slide Review NO; Basophils Absolute Auto 0 /uL (0-100); Basophils Percent Auto 0.3 % (0-2); Eosinophils Absolute Auto 0 /uL (0-450); Eosinophils Percent Auto 0.8 % (2-4); Hematocrit 39.5 % (41-53); Hemoglobin 13.4 g/dL (13.5-17.5); Lymphocytes Absolute Auto 900 /uL (1100-4500); Lymphocytes Percent Auto 16.4 % (25-40); Mean Corpuscular Hemoglobin 32.6 PG (26-34); Mean Corpuscular Volume 95.7 fL (80-100); Monocytes Absolute Auto 600 /uL (0-900); Monocytes Percent Auto 10.4 % (3-14); Neutrophils Absolute Auto 3800 /uL (1500-7000); Neutrophils Percent Auto 72.1 % (50-75); Platelet Count 138 X10^3/uL (150-400); Red Blood Cell Count 4.12 X10^6/uL (4.5-5.9); White Blood Cell Count 5.3 X10^3/uL (4.5-11.0)
[2023-11-26 11:43] LABS: Blood Urea Nitrogen 25 mg/dL (9-20); Calcium 8.8 mg/dL (8.4-10.2); Carbon Dioxide 27 mmol/L (22-32); Chloride 102 mmol/L (98-107); Estimated Glomerular Filt Rate 59 mL/min (>60); Glucose 86 mg/dL (80-110); HEMOLYSIS < 15 (0-50); Potassium 4.7 mmol/L (3.4-5.1); Sodium 130 mmol/L (137-145)
== END ==
PROVIDERS: Family Provider Internal Medicine; PCP Physician Assistant; Referring Provider Internal Medicine Cardiovascular Disease; Visit Provider Internal Medicine Cardiovascular Disease
DX: I48.91 Unspecified atrial fibrillation (principal)
CPT/HCPCS: 36415; 80048; 85025

== ENCOUNTER → 2024-01-10 14:06 | Outpatient (CLI) | payer MEDICARE, SELFPAY ==
[2024-01-11 08:36] LABS: PSA Free % 35.8 % (.); PSA, Total 3.1 ng/mL (0.0-4.0)
== END ==
PROVIDERS: Family Provider Internal Medicine; PCP Physician Assistant; Referring Provider Urology; Visit Provider Urology
DX: R97.20 Elevated prostate specific antigen [PSA] (principal)
CPT/HCPCS: 36415; 84153; 84154

== ENCOUNTER → 2024-01-11 12:13 | Outpatient (CLI) | payer MEDICARE, SELFPAY ==
--- NOTE | 2024-01-11 12:14 | DI.US.S_ITS ---
PROCEDURE: US PERIPH VENOUS LOW EXTREM LT INDICATIONS: EDEMA TECHNIQUE: Real-time imaging, as well as color and pulse Doppler interrogation, were performed of the lower extremity deep veins from the inguinal ligament to the popliteal fossa, with documentation of the visualized calf veins. COMPARISON: None. FINDINGS: The common femoral, femoraland the visualized calf veins are normally compressible, and free of intraluminal thrombus. Color and pulse Doppler demonstrate normal phasic intraluminal flow. There is normal augmentation response to distal compression maneuver. The popliteal vein is partially compressible with mural thrombus. IMPRESSION: No acute deep venous thrombosis. Chronic appearing deep venous thrombosis in the popliteal vein. Dictated by: Shayna Napoles M.D. on 01/11/2024 at 16:52 Approved by: Shayna Napoles M.D. on 01/11/2024 at 16:53
== END ==
PROVIDERS: Family Provider Internal Medicine; PCP Physician Assistant; Referring Provider Nurse Practitioner Family; Visit Provider Nurse Practitioner Family
DX: I82.532 Chronic embolism and thrombosis of left popliteal vein (principal); R60.9 Edema, unspecified
CPT/HCPCS: 93971

== ENCOUNTER → 2024-01-21 10:03 | Outpatient (CLI) | payer MEDICARE, SELFPAY ==
[2024-01-21 11:21] LABS: Add Manual Diff / Slide Review NO; Basophils Absolute Auto 0 /uL (0-100); Basophils Percent Auto 0.6 % (0-2); Eosinophils Absolute Auto 0 /uL (0-450); Eosinophils Percent Auto 0.6 % (2-4); Hematocrit 36.8 % (41-53); Hemoglobin 12.6 g/dL (13.5-17.5); Lymphocytes Absolute Auto 700 /uL (1100-4500); Lymphocytes Percent Auto 11.1 % (25-40); Mean Corpuscular HGB Conc 34.2 % (30-36); Mean Corpuscular Hemoglobin 33.1 PG (26-34); Monocytes Absolute Auto 700 /uL (0-900); Monocytes Percent Auto 12.1 % (3-14); Neutrophils Absolute Auto 4700 /uL (1500-7000); Neutrophils Percent Auto 75.6 % (50-75); Platelet Count 169 X10^3/uL (150-400); Red Blood Cell Count 3.79 X10^6/uL (4.5-5.9); Red Cell Distribution Width 14.6 % (11.6-14.8); White Blood Cell Count 6.2 X10^3/uL (4.5-11.0)
[2024-01-21 11:40] LABS: BUN Creatinine Ratio 20.6 (6-22); Blood Urea Nitrogen 29 mg/dL (9-20); Calcium 8.7 mg/dL (8.4-10.2); Carbon Dioxide 20 mmol/L (22-32); Chloride 100 mmol/L (98-107); Estimated Glomerular Filt Rate 51 mL/min (>60); Glucose 109 mg/dL (80-110); HEMOLYSIS < 15 (0-50); Potassium 4.3 mmol/L (3.4-5.1); Sodium 130 mmol/L (137-145)
== END ==
PROVIDERS: Family Provider Internal Medicine; PCP Physician Assistant; Referring Provider Nurse Practitioner Family; Visit Provider Nurse Practitioner Family
DX: I48.91 Unspecified atrial fibrillation (principal)
CPT/HCPCS: 36415; 80048; 85025

== ENCOUNTER 2024-03-25 08:09 | Day surgery (SDC) | payer MEDICARE, SELFPAY ==
[2024-03-20 07:55] VITALS: BMI 26.4
[2024-03-25] VITALS (9 sets, daily range): BP systolic 105–155; BP diastolic 55–89; PULSE 47–65; RESP 7–18; TEMP 35.9–36.6; O2SAT 94–98; BMI 25.7
--- NOTE | 2024-03-25 | PATH_ITS ---
[facility] Accession Number: [id number] No. of containers..01 Tissue . 01 Material submitted: . prostate - PROSTATE CHIPS . 01 Diagnosis: PROSTATE CHIPS, TRANSURETHRAL PROSTATE RESECTION (TUPR): Benign prostatic parenchyma, weight: 2 grams, with mild chronic inflammation and stromal hypertrophy. Benign urothelial mucosa also present. Negative for atypia and invasive malignancy. [facility] 03/27/2024 1331 Local . 01 Electronically signed: . Katya Hernadez MD, Pathologist NPI- [id number] . 01 Gross description: . Received in formalin with two patient identifiers and prostate chips, are multiple anderson soft tissue fragments weighing 2 grams and aggregating to 3.0 x 2.5 x 0.3 cm. Submitted entirely in A1-A2. ([id number]) /MRV 03/26/2024 1816 Local . 01 Pathologist provided ICD-10: N40.0 . 01 CPT . 631570 Specimen Comment: A courtesy copy of this report has been sent to [phone] Performed at: [address] [address] [id number], [place], [place] [id number] MD Aries Olivo MD Phone: [phone]
[2024-03-25] MEDS: ACETAMINOPHEN 325 MG TABLET 975 MG PO (09:17)
[2024-03-25] MEDS: LACTATED RINGERS 1,000 ML 42 ML IV (09:17)
--- NOTE | 2024-03-25 09:27 | PM.PREOP ---
Pre-operative Note COVID-19 COVID-19 status: Not tested Interval Note History & Physical reviewed/Exam performed by Physician: Yes Changes to H&P: No
[2024-03-25] MEDS: CEFAZOLIN 2 GM/100 ML PREMIX 100 ML IV (09:42)
--- NOTE | 2024-03-25 10:05 | SUR.OPER ---
Lithotomy on padded OR bed, head on pillow, arms secured on padded arm boards at <90 degrees abduction. Legs secured in padded yellow fins stirrups.
--- NOTE | 2024-03-25 11:21 | P.OP_ITS ---
Procedure & Clinicians Procedure: 1. Aquablation 2. Transrectal ultrasound of the prostate 3. Transurethral resection of prostate with fulguration 4. Placement of Domínguez catheter Same procedure as scheduled: Yes Indications: This 78-year-old male presented having had a GreenLight laser procedure a number of years ago with recurrent lower urinary tract symptoms secondary to BPH so he is BPH with lower urinary tract symptoms recurrent. Underwent workup was found to have an 87 g prostate average flow of 6 mL per 2nd and no sign of prostate cancer. Had obstructing prostate tissue was felt to be a excellent candidate for Aquablation and presents at this time for that procedure. Surgeon: Cresencio Gonzalez Click Yes if Unassisted: Yes Anesthesia Type: General Operative Notes Findings: Findings: Urethral meatus is normal, urethra is normal along its length sphincter as well coapted. The prostate exhibits regrowth and marked obstructive character with some bulging into the bladder. Ureteral orifices in normal position with clear efflux seen at the end of the procedure they were in normal position and unharmed. Bladder exhibits severe trabeculation. At the end of the procedure the prostatic fossa was widely patent and the few prostatic chips that were resected at the bladder neck were forward to pathology for pathologic examination. A 24 Argentine 30 cc Josefina hematuria catheter was left in place with 45 cc in the balloon. The patient had an excellent stream with the scope was removed. Closure Type: not applicable Specimen(s): other (Prostate chips) Applied: catheter (24 Argentine three-way hematuria catheter 30 cc balloon with 45 cc in the balloon left in place.) Estimated Blood Loss (mL): 25 Blood products transfused: none Procedure in detail: Procedure in detail: After informed consent was obtained, the patient was identified brought the operating room where he was placed in a supine position on the table and anesthesia was induced and maintained. Ensuring an adequate level of anesthesia the patient was transitioned to the lithotomy position and once there was prepped in a sterile fashion. After prepping, time-out, ensuring an adequate level of anesthesia, antibiotic administration 60 cc of ultrasound gel was instilled in the patient's rectum. Followed by the ultrasound probe which had been attached to the truss stepper which was mounted to the articulating arm which was secured to the bed. The ultrasound probe was then aligned and confirmation patient made that the prostate was centered and aligned in both the transverse and longitudinal views. The level of the bladder neck, verumontanum, external sphincter were noted on ultrasound. The prostate had previously been measured at 87 mL. With the ultrasound probe in appropriate position the patient was then draped in a sterile fashion. At this point the 24 Argentine aqua beam handpiece was inserted into the urethra and passed through the urethra prostate and into the bladder where cystoscopy was performed. With the hand piece in appropriate position it was attached to the handpiece articulating arm which he had been attached to the bed. The alignment of the aqua beam handpiece and ultrasound probe was ensured to make sure that they were aligned and colinear that is purulent: Linear. Confirmation was then made that the aqua beam nozzle was centered and anterior to the bladder neck. The cystoscope was then retracted to the level of the external paced sphincter and left in a position proximal to the external sphincter in proximity to the verumontanum. Again at this point the alignment of the aqua beam handpiece and ultrasound was confirmed. With the ultrasound probe slight up for compression was applied to the prostate. Was then confirmed that the water jet was centered and parallel to the 3 and 9 o'clock position. The treatment zones and or planning was then performed. Using real-time ultrasound. In the transverse view the depth of resection and radial angles were determined and programmed into the device. In the sagittal view the aqua beam nozzle was identified in his position registered with the software and device. The length of treatment was then determined. And in the longitudinal view the treatment contours were determine and marked to include start of treatment bladder neck mid prostate and tip of scope or ve rumontanum. With a satisfactory resection contour in place confirming that the patient would not move the Aquablation treatment was started and completed. The progress was monitored with real-time ultrasound and adjustments were made on the fly as needed. With the 1st pass completed 2nd pass was performed after adjusting the contour. Both of these with without incident in the total time was 7 minutes 30 seconds. With the resection completed the cystoscope was looked out. And a continuous-flow resectoscope inserted. The ureteral orifices were identified found to be unharmed. And the bladder neck was resected from the 2 to 3 o'clock position around to the 9 to 10 o'clock position. Points of bleeding were controlled with the electrocautery. Anteriorly there was a few areas of bleeding which were controlled with electrocautery. There was some tissue anteriorly which was hanging down which was easily resected. At the apex there was some redundant tissue which was resected without difficulty. And again points of bleeding were controlled with the electrocautery. The AmiraCue evacuator was then used to evacuate the prostate chips and any remaining blood clots. The resectoscope loop was once again inserted and a few remaining points of bleeding were controlled at this point the urine was essentially clear with perhaps a slight blush color. The bladder was left full the scope was removed and the patient had a vigorous stream. Then with the aid of a cath guide the catheter was easily placed into the bladder. A just prior to the scope being removed the ureteral orifices were once again visualized and appeared to be unharmed. The balloon of the catheter was filled with 45 cc of sterile water and placed to gravity drainage. Continuous bladder irrigation was plugged in and started. At this point the patient was awakened having tolerated the procedure well there were no complications the patient was transferred to the postanesthesia care unit for recovery. Complications: none Post-operative Condition: stable Disposition: PACU Plan for aftercare: Patient will be recovered in the postanesthesia care unit CBI will be weaned off and adjustment made whether to keep the patient overnight order to discharge to home we will be made a little later.
--- NOTE | 2024-03-25 11:38 | SUR.PHASEI ---
Patient arrived in PACU with irrigation disconnected. Domínguez was reconnected by [employer]PER[employer]. Patient and bedding changed. Dr. Gonzalez notified.
--- NOTE | 2024-03-25 15:02 | SUR.PHASEII ---
[address] Gonzalez, taking po fluids without c/o nausea, amb with sba, pt declined leg bag states will not be changing out bag before f/u
== END 2024-03-25 14:58 | disposition home or self-care (01) ==
PROVIDERS: Family Provider Internal Medicine; PCP Physician Assistant; Referring Provider Urology; Visit Provider Urology
PROC: 0VT08ZZ Resection of Prostate, Via Natural or Artificial Opening Endoscopic (ICD-10-PCS; CPT 52597; principal; 2024-03-25 09:45)
DX: N40.1 Benign prostatic hyperplasia with lower urinary tract symptoms (principal); R33.9 Retention of urine, unspecified; R97.20 Elevated prostate specific antigen [PSA]
CPT/HCPCS: 0421T; C2596; J0330; J0690; J1100; J1171; J2405; J2704; J3490

== ENCOUNTER → 2024-03-27 15:26 | Outpatient (CLI) | payer MEDICARE, SELFPAY | PROVIDERS: Family Provider Internal Medicine; PCP Physician Assistant; Visit Provider Urology | DX: R33.9 Retention of urine, unspecified (principal) | CPT/HCPCS: 51798; 87086 ==

== ENCOUNTER → 2024-03-28 14:51 | Outpatient (CLI) | payer MEDICARE, SELFPAY | PROVIDERS: Family Provider Internal Medicine; PCP Physician Assistant; Referring Provider Urology; Visit Provider Urology | DX: R33.9 Retention of urine, unspecified (principal) | CPT/HCPCS: 51798; 87086 ==

== ENCOUNTER → 2024-04-10 13:22 | Outpatient (CLI) | payer MEDICARE, SELFPAY | PROVIDERS: Family Provider Internal Medicine; PCP Physician Assistant; Visit Provider Urology | DX: N40.1 Benign prostatic hyperplasia with lower urinary tract symptoms (principal); R33.9 Retention of urine, unspecified | CPT/HCPCS: 87086 ==

== ENCOUNTER → 2024-04-30 15:25 | Outpatient (CLI) | payer MEDICARE, SELFPAY | PROVIDERS: Family Provider Internal Medicine; PCP Physician Assistant; Visit Provider Urology | DX: N40.1 Benign prostatic hyperplasia with lower urinary tract symptoms (principal); R97.20 Elevated prostate specific antigen [PSA] | CPT/HCPCS: 87086 ==

== ENCOUNTER → 2025-01-12 13:33 | Outpatient (CLI) | payer MEDICARE, SELFPAY ==
[2025-01-14 07:10] LABS: PSA, Total 4.4 ng/mL (0.0-4.0)
== END ==
PROVIDERS: Family Provider Internal Medicine; PCP Physician Assistant; Referring Provider Urology; Visit Provider Urology
DX: R97.20 Elevated prostate specific antigen [PSA] (principal)
CPT/HCPCS: 36415; 84153; 84154